=== PATIENT | female | born 1960 | race African-American/Black ===

== ENCOUNTER 2018-08-12 05:37 | Inpatient (IN) | payer MEDICARE, MEDICAID ==
[2018-08-12] VITALS (50 sets, daily range): BP systolic 80–249; BP diastolic 30–164
[~2018-08-12] VITALS: Ht 165.1 cm; Wt 67.1 kg
[2018-08-12] MEDS ORDERED: LACTATED RINGERS 1,000 ML IV SCH (06:00)
[2018-08-12] MEDS ORDERED: LIDOCAINE HCL/EPINEPHRINE 1%-EPI 1:100,000 20 ML VIAL ONE (06:16)
[2018-08-12] MEDS ORDERED: BACITRACIN 50,000 UNITS/VIAL ONE (06:16)
[2018-08-12] MEDS ORDERED: THROMBIN (BOVINE) 5000 UNITS/VIAL TOP ONE (06:17)
[2018-08-12] MEDS ORDERED: MIDAZOLAM HCL 2 MG/2 ML VIAL ONE (06:34)
[2018-08-12] MEDS ORDERED: ROCURONIUM BROMIDE 10MG/ML VIAL 5ML IV ONE ×2 (06:34→08:20)
[2018-08-12] MEDS ORDERED: PROPOFOL 200MG/20ML VIAL IV ONE ×3 (06:34→08:59)
[2018-08-12] MEDS ORDERED: HYDROMORPHONE HCL/PF 2MG/ML (OR) ONE (06:34)
[2018-08-12] MEDS ORDERED: FENTANYL CITRATE/PF 50MCG/ML 5ML VIAL ONE (06:34)
[2018-08-12] MEDS ORDERED: SODIUM CHLORIDE 0.9% 10ML VIAL ONE (06:38)
[2018-08-12] MEDS ORDERED: CEFAZOLIN SODIUM 1000MG/VIAL ONE (06:38)
[2018-08-12] MEDS ORDERED: PHENYLEPHRINE HCL 10 MG/ML 1ML (IV VIAL) IV ONE (06:40)
[2018-08-12 06:54] LABS: BASOPHILS % 0.9 % (0.0-2.0); EOSINOPHILS % 3.2 % (0.0-5.0); HEMATOCRIT. 35.3 % (36.0-48.0); HEMOGLOBIN. 11.4 g/dL (12.0-16.0); LYMPHOCYTES % 24.3 % (20.0-50.0); MEAN CORPUSCULAR VOLUME 92.7 fL (81.0-99.0); MONOCYTES % 10.5 % (2.0-8.0); NEUTROPHILS % 61.1 % (40.0-76.0); PLATELET 116 x1000/uL (130-400); RED BLOOD CELL COUNT 3.81 mill/uL (4.2-5.4); RED CELL DISTRIBUTION WIDTH 12.8 % (11.6-14.6)
[2018-08-12 07:01] LABS: CHLORIDE 106 mEq/L (98-107)
[2018-08-12 07:07] LABS: INR 1.1; PARTIAL THROMBOPLASTIN TIME 25.6 sec (23.4-31.0)
[2018-08-12] MEDS ORDERED: ESMOLOL HCL 10MG/ML 10ML VIAL IV ONE ×2 (08:04→09:00)
[2018-08-12] MEDS ORDERED: GABA-531 PO (09:12)
[2018-08-12] MEDS ORDERED: FLUT15.88 BOTHNSTRLS (09:12)
[2018-08-12] MEDS ORDERED: ACET-2178 PO (09:12)
[2018-08-12] MEDS ORDERED: HYDR25TA PO (09:12)
[2018-08-12] MEDS ORDERED: BENAZEPRIL PO (09:12)
[2018-08-12] MEDS ORDERED: HYDR-3280 PO (09:12)
[2018-08-12] MEDS ORDERED: AMLODIPINE PO (09:12)
[2018-08-12] MEDS ORDERED: FERR325T6 PO (09:12)
[2018-08-12] MEDS ORDERED: GINK120C PO (09:12)
[2018-08-12] MEDS ORDERED: NAPR220T66 PO (09:12)
[2018-08-12] MEDS ORDERED: GLYCOPYRROLATE 0.2 MG/ML 2ML VIAL ONE (09:45)
[2018-08-12] MEDS ORDERED: LABETALOL HCL 5MG/ML VIAL 20ML IV ONE (10:09)
[2018-08-12] MEDS ORDERED: ONDANSETRON HCL 4MG/2ML INJ IV PRN (10:15)
[2018-08-12] MEDS: MORPHINE SULFATE 4 MG/ML CPJ (NOT FOR IM USE) IV PRN (10:58)
[2018-08-12] MEDS: NICARDIPINE 100 MG in SODIUM CHLORIDE 0.9% 60 ML IV PRN ×2 (11:09→19:42)
[2018-08-12] MEDS ORDERED: NALOXONE INJ IV PRN (11:30)
[2018-08-12] MEDS ORDERED: HYDROMORPHONE PCA 10MG/50ML IV PRN (11:30)
[2018-08-12] MEDS ORDERED: ONDANSETRON INJ IV PRN (11:30)
[2018-08-12] MEDS ORDERED: BISACODYL 5MG TABLET PO PRN (12:45)
[2018-08-12] MEDS: DEXT 5%/LACTATED RINGERS 1,000 ML IV SCH ×3 (13:00→20:38)
[2018-08-12] MEDS ORDERED: CEFAZOLIN 1000MG PREMIX 50 ML IV SCH (14:00)
[2018-08-12] MEDS ORDERED: CEFAZOLIN SODIUM 1000MG/VIAL IV SCH (14:00)
[2018-08-12] MEDS: CEFAZOLIN 1000MG PREMIX 50 ML IV SCH ×2 (14:06→22:33)
[2018-08-12] MEDS ORDERED: DEXTROSE 50% WATER 50ML SYRINGE IV PRN (15:30)
[2018-08-12] MEDS: DOCUSATE SODIUM 100MG CAPSULE PO SCH (17:00)
[2018-08-12] MEDS: BLOOD SUGAR DIAGNOSTIC STRIP TEST SCH ×2 (17:13→21:00)
[2018-08-12] MEDS: INSULIN LISPRO 100 UNITS/ML SUBCUT SCH ×2 (17:43→21:00)
[2018-08-12] MEDS: GABAPENTIN 100MG CAPSULE PO SCH (22:33)
[2018-08-13] VITALS (89 sets, daily range): BP systolic 79–209; BP diastolic 28–131
[2018-08-13] MEDS: DEXT 5%/LACTATED RINGERS 1,000 ML IV SCH ×3 (04:26→21:30)
[2018-08-13 05:22] LABS: BASOPHILS % 0.2 % (0.0-2.0); EOSINOPHILS % 0.2 % (0.0-5.0); HEMATOCRIT. 26.3 % (36.0-48.0); HEMOGLOBIN. 8.6 g/dL (12.0-16.0); LYMPHOCYTES % 7.6 % (20.0-50.0); MEAN CORPUSCULAR HEMOGLOBIN 30.4 pg (28.0-32.0); MEAN CORPUSCULAR VOLUME 93.2 fL (81.0-99.0); MEAN PLATELET VOLUME 11.5 fl (7.4-10.4); MONOCYTES % 9.1 % (2.0-8.0); NEUTROPHILS % 82.9 % (40.0-76.0); PLATELET 88 x1000/uL (130-400); RED BLOOD CELL COUNT 2.82 mill/uL (4.2-5.4); RED CELL DISTRIBUTION WIDTH 12.6 % (11.6-14.6)
[2018-08-13] MEDS: MORPHINE SULFATE 4 MG/ML CPJ (NOT FOR IM USE) IV PRN (06:00)
[2018-08-13] MEDS: BLOOD SUGAR DIAGNOSTIC STRIP TEST SCH ×4 (06:30→21:39)
[2018-08-13] MEDS: INSULIN LISPRO 100 UNITS/ML SUBCUT SCH ×4 (07:00→21:00)
[2018-08-13] MEDS: GABAPENTIN 100MG CAPSULE PO SCH ×3 (07:03→21:46)
[2018-08-13] MEDS: CEFAZOLIN 1000MG PREMIX 50 ML IV SCH ×3 (07:04→21:46)
[2018-08-13] MEDS: DOCUSATE SODIUM 100MG CAPSULE PO SCH ×2 (08:47→17:00)
[2018-08-13] MEDS ORDERED: MAGNESIUM 2 G PREMIX 50 ML IV SCH (09:00)
[2018-08-13 20:43] LABS: HEMATOCRIT 24.9 % (36.0-48.0); HEMOGLOBIN 8.1 g/dL (12.0-16.0)
[2018-08-14] VITALS (49 sets, daily range): BP systolic 85–162; BP diastolic 26–110
[2018-08-14] MEDS: DIPHENHYDRAMINE INJ IV PRN ×2 (04:37→17:05)
[2018-08-14] MEDS: DEXT 5%/LACTATED RINGERS 1,000 ML IV SCH ×2 (04:40→22:59)
[2018-08-14 05:46] LABS: BASOPHILS % 0.1 % (0.0-2.0); EOSINOPHILS % 0.5 % (0.0-5.0); HEMATOCRIT. 22.8 % (36.0-48.0); HEMOGLOBIN. 7.6 g/dL (12.0-16.0); LYMPHOCYTES % 7.9 % (20.0-50.0); MEAN CORPUSCULAR HEMOGLOBIN 30.9 pg (28.0-32.0); MEAN CORPUSCULAR VOLUME 93.1 fL (81.0-99.0); MEAN PLATELET VOLUME 11.6 fl (7.4-10.4); MONOCYTES % 10.4 % (2.0-8.0); NEUTROPHILS % 81.1 % (40.0-76.0); PLATELET 75 x1000/uL (130-400); RED BLOOD CELL COUNT 2.45 mill/uL (4.2-5.4); RED CELL DISTRIBUTION WIDTH 12.7 % (11.6-14.6)
[2018-08-14 05:52] LABS: CHLORIDE 103 mEq/L (98-107)
[2018-08-14] MEDS: BLOOD SUGAR DIAGNOSTIC STRIP TEST SCH ×4 (05:54→20:40)
[2018-08-14] MEDS: INSULIN LISPRO 100 UNITS/ML SUBCUT SCH ×4 (06:03→20:59)
[2018-08-14 06:08] LABS: PHOSPHORUS 1.7 mg/dL (2.5-4.9)
[2018-08-14] MEDS: GABAPENTIN 100MG CAPSULE PO SCH ×3 (06:14→21:32)
[2018-08-14] MEDS: CEFAZOLIN 1000MG PREMIX 50 ML IV SCH (06:14)
[2018-08-14] MEDS ORDERED: MORPHINE SULFATE 4 MG/ML CPJ (NOT FOR IM USE) IV PRN (07:45)
[2018-08-14] MEDS: DOCUSATE SODIUM 100MG CAPSULE PO SCH ×2 (09:01→16:59)
[2018-08-14] MEDS ORDERED: SODIUM PHOS,M-BASIC-D-BASIC 20 MM in DEXT 5% WATER 250 ML IV SCH (09:30)
[2018-08-14] MEDS ORDERED: MAGNESIUM 2 G PREMIX 50 ML IV SCH (09:30)
[2018-08-14] MEDS: ACETAMINOPHEN 325MG TABLET PO PRN (09:33)
[2018-08-14] MEDS: MORPHINE SULFATE 4 MG/ML CPJ (NOT FOR IM USE) IV PRN ×2 (19:31→23:32)
[2018-08-14] MEDS: HYDROCODONE/APAP 7.5/325MG 1 TAB TABLET PO PRN (21:38)
[2018-08-15] VITALS: BP 131/67
[2018-08-15 04:00] VITALS: BP 160/50
[2018-08-15] MEDS: HYDROCODONE/APAP 7.5/325MG 1 TAB TABLET PO PRN (05:25)
[2018-08-15 06:31] LABS: HEMOGLOBIN. 8.9 g/dL (12.0-16.0); MEAN CORPUSCULAR HEMOGLOBIN 30.3 pg (28.0-32.0); MEAN CORPUSCULAR VOLUME 91.7 fL (81.0-99.0); MEAN PLATELET VOLUME 10.3 fl (7.4-10.4); PLATELET 84 x1000/uL (130-400); RED BLOOD CELL COUNT 2.95 mill/uL (4.2-5.4); RED CELL DISTRIBUTION WIDTH 12.7 % (11.6-14.6)
[2018-08-15] MEDS: BLOOD SUGAR DIAGNOSTIC STRIP TEST SCH ×4 (06:31→21:43)
[2018-08-15] MEDS: INSULIN LISPRO 100 UNITS/ML SUBCUT SCH ×4 (06:32→21:00)
[2018-08-15] MEDS: GABAPENTIN 100MG CAPSULE PO SCH ×3 (06:32→21:44)
[2018-08-15 07:39] LABS: CHLORIDE 100 mEq/L (98-107)
[2018-08-15 07:44] LABS: PHOSPHORUS 2.4 mg/dL (2.5-4.9)
[2018-08-15 08:00] VITALS: BP 140/63
[2018-08-15] MEDS: DOCUSATE SODIUM 100MG CAPSULE PO SCH ×2 (08:01→17:20)
[2018-08-15] MEDS: MORPHINE SULFATE 4 MG/ML CPJ (NOT FOR IM USE) IV PRN (08:01)
[2018-08-15 09:30] LABS: PLATELET ESTIMATE DECREASED
[2018-08-15] MEDS ORDERED: CYCLOBENZAPRINE 10MG TABLET PO PRN (09:45)
[2018-08-15] MEDS ORDERED: MORPHINE SULFATE 4 MG/ML CPJ (NOT FOR IM USE) IV PRN (09:45)
[2018-08-15] MEDS: HYDROCODONE/ACETAMINOPHEN 10/325MG TABLET PO PRN ×2 (10:26→17:24)
[2018-08-15 11:30] VITALS: BP 115/52
[2018-08-15 15:31] VITALS: BP 140/59
[2018-08-15] MEDS: DIPHENHYDRAMINE INJ IV PRN (17:56)
[2018-08-15 20:00] VITALS: BP 121/61
[2018-08-15] MEDS: POTASSIUM-SODIUM PHOSPHATE POWDER PACKET PO SCH (21:46)
[2018-08-16] VITALS: BP 131/56
[2018-08-16] MEDS: HYDROCODONE/ACETAMINOPHEN 10/325MG TABLET PO PRN ×2 (01:52→10:29)
[2018-08-16 04:00] VITALS: BP 122/62
[2018-08-16] MEDS: BLOOD SUGAR DIAGNOSTIC STRIP TEST SCH ×2 (06:24→12:15)
[2018-08-16] MEDS: GABAPENTIN 100MG CAPSULE PO SCH ×2 (06:24→13:41)
[2018-08-16] MEDS: ACETAMINOPHEN 325MG TABLET PO PRN (06:50)
[2018-08-16 06:52] LABS: BASOPHILS % 0.3 % (0.0-2.0); EOSINOPHILS % 1.5 % (0.0-5.0); HEMATOCRIT. 27.7 % (36.0-48.0); MEAN CORPUSCULAR HEMOGLOBIN 30.1 pg (28.0-32.0); MEAN CORPUSCULAR VOLUME 92.7 fL (81.0-99.0); MEAN PLATELET VOLUME 10.6 fl (7.4-10.4); NEUTROPHILS % 76.2 % (40.0-76.0); PLATELET 102 x1000/uL (130-400); RED BLOOD CELL COUNT 2.99 mill/uL (4.2-5.4); RED CELL DISTRIBUTION WIDTH 12.7 % (11.6-14.6)
[2018-08-16 07:31] LABS: CHLORIDE 98 mEq/L (98-107)
[2018-08-16] MEDS: INSULIN LISPRO 100 UNITS/ML SUBCUT SCH ×2 (07:50→12:15)
[2018-08-16 08:00] VITALS: BP 129/50
[2018-08-16] MEDS: DOCUSATE SODIUM 100MG CAPSULE PO SCH (08:31)
[2018-08-16] MEDS: POTASSIUM-SODIUM PHOSPHATE POWDER PACKET PO SCH (08:31)
[2018-08-16 11:55] VITALS: BP 101/52
[2018-08-16] MEDS ORDERED: LACTULOSE 20G/30ML UDC PO SCH (13:00)
[2018-08-16 13:21] VITALS: BP 120/62
== END 2018-08-16 15:25 | DRG 453 ==
LOC: OR 05:37 → MICUSO 05:38 → 6EST 08-14 17:58
PROVIDERS: ADMIT Neurological Surgery; ATTEND Neurological Surgery
PROC: 0ST20ZZ Resection of Lumbar Vertebral Disc, Open Approach (ICD-10-PCS; principal; 2018-08-12)
PROC: 0SG30A0 Fusion of Lumbosacral Joint with Interbody Fusion Device, Anterior Approach, Anterior Column, Open Approach (ICD-10-PCS; 2018-08-12)
PROC: 0SG3071 Fusion of Lumbosacral Joint with Autologous Tissue Substitute, Posterior Approach, Posterior Column, Open Approach (ICD-10-PCS; 2018-08-12)
PROC: 0SG10A0 Fusion of 2 or more Lumbar Vertebral Joints with Interbody Fusion Device, Anterior Approach, Anterior Column, Open Approach (ICD-10-PCS; 2018-08-12)
PROC: 0SG10K1 Fusion of 2 or more Lumbar Vertebral Joints with Nonautologous Tissue Substitute, Posterior Approach, Posterior Column, Open Approach (ICD-10-PCS; 2018-08-12)
PROC: 00NY0ZZ Release Lumbar Spinal Cord, Open Approach (ICD-10-PCS; 2018-08-12)
PROC: 4A11X4G Monitoring of Peripheral Nervous Electrical Activity, Intraoperative, External Approach (ICD-10-PCS; 2018-08-12)
PROC: BR191ZZ Fluoroscopy of Lumbar Spine using Low Osmolar Contrast (ICD-10-PCS; 2018-08-12)
PROC: BR1B1ZZ Fluoroscopy of Lumbosacral Joint using Low Osmolar Contrast (ICD-10-PCS; 2018-08-12)
PROC: 30233N1 Transfusion of Nonautologous Red Blood Cells into Peripheral Vein, Percutaneous Approach (ICD-10-PCS; 2018-08-14)
DX: M47.16 Other spondylosis with myelopathy, lumbar region (principal); G82.50 Quadriplegia, unspecified; N17.9 Acute kidney failure, unspecified; M43.16 Spondylolisthesis, lumbar region; D64.9 Anemia, unspecified; E83.42 Hypomagnesemia; M48.061 Spinal stenosis, lumbar region without neurogenic claudication; M48.02 Spinal stenosis, cervical region; D69.6 Thrombocytopenia, unspecified; G89.4 Chronic pain syndrome; M51.26 Other intervertebral disc displacement, lumbar region; Z82.49 Family history of ischemic heart disease and other diseases of the circulatory system
CPT/HCPCS: 36415; 71045; 72100; 76000; 76770; 80048; 82962; 83735; 84100; 85014; 85018; 86850; 86900; 86920; 88304; 88311; 93005; 93970; 95863; 95925; 95926; 95928; 95929; 97162; 97166; 97530; 97760; C1713; J0690; J1170; J1200; J1815; J2250; J2270; J2370; J2405; J2704; J3010; J3475; J3490; J7050; J7060; J7121; P9016

== ENCOUNTER 2018-08-16 15:25 | Inpatient (IN) | payer MEDICARE, MEDICAID ==
[~2018-08-16] VITALS: Ht 165.1 cm; Wt 64.4 kg
[~2018-08-16 15:25] MED LIST: ACET-2178 PO; AMLODIPINE PO; BENAZEPRIL PO; FERR325T6 PO; FLUT15.88 BOTHNSTRLS; GABA-531 PO; GINK120C PO; HYDR-3280 PO; HYDR25TA PO; NAPR220T66 PO
[2018-08-16 15:45] VITALS: BP 145/46
[2018-08-16 16:37] VITALS: BP 145/46
[2018-08-16] MEDS ORDERED: ONDANSETRON 4MG ODT PO PRN (16:45)
[2018-08-16] MEDS ORDERED: DIPHENHYDRAMINE 25MG CAPSULE PO PRN (16:45)
[2018-08-16] MEDS ORDERED: NALOXONE HCL 0.4 MG/ML 1ML VIAL IV PRN (16:45)
[2018-08-16] MEDS ORDERED: BISACODYL 5MG TABLET PO PRN (16:45)
[2018-08-16] MEDS: INSULIN LISPRO 100 UNITS/ML SUBCUT SCH ×2 (17:00→21:00)
[2018-08-16] MEDS ORDERED: DEXTROSE 50% WATER 50ML SYRINGE IV PRN (17:00)
[2018-08-16] MEDS: DOCUSATE SODIUM 100MG CAPSULE PO SCH (17:25)
[2018-08-16] MEDS: HYDROCODONE/ACETAMINOPHEN 10/325MG TABLET PO PRN ×2 (17:25→21:08)
[2018-08-16] MEDS: LACTULOSE 20G/30ML UDC PO SCH ×2 (17:25→21:00)
[2018-08-16] MEDS: BLOOD SUGAR DIAGNOSTIC STRIP TEST SCH ×2 (17:31→21:00)
[2018-08-16 20:00] VITALS: BP 122/54
[2018-08-16] MEDS: GABAPENTIN 100MG CAPSULE PO SCH (21:08)
[2018-08-17] VITALS: BP 158/69
[2018-08-17 04:00] VITALS: BP 148/56
[2018-08-17] MEDS: MORPHINE SULFATE 4 MG/ML CPJ (NOT FOR IM USE) IV PRN ×3 (05:51→21:03)
[2018-08-17] MEDS: BLOOD SUGAR DIAGNOSTIC STRIP TEST SCH ×4 (06:30→20:53)
[2018-08-17] MEDS: GABAPENTIN 100MG CAPSULE PO SCH ×3 (06:36→21:01)
[2018-08-17 06:49] LABS: BASOPHILS % 0.3 % (0.0-2.0); HEMATOCRIT. 25.6 % (36.0-48.0); HEMOGLOBIN. 8.4 g/dL (12.0-16.0); LYMPHOCYTES % 9.3 % (20.0-50.0); MEAN CORPUSCULAR HEMOGLOBIN 30.2 pg (28.0-32.0); MEAN PLATELET VOLUME 10.1 fl (7.4-10.4); NEUTROPHILS % 75.4 % (40.0-76.0); PLATELET 121 x1000/uL (130-400); RED BLOOD CELL COUNT 2.78 mill/uL (4.2-5.4); RED CELL DISTRIBUTION WIDTH 12.8 % (11.6-14.6)
[2018-08-17 07:23] LABS: CHLORIDE 95 mEq/L (98-107)
[2018-08-17 08:00] VITALS: BP 151/68
[2018-08-17] MEDS: DOCUSATE SODIUM 100MG CAPSULE PO SCH ×3 (08:06→17:04)
[2018-08-17] MEDS: POTASSIUM-SODIUM PHOSPHATE POWDER PACKET PO SCH (08:06)
[2018-08-17] MEDS: CYCLOBENZAPRINE 10MG TABLET PO PRN ×2 (08:06→17:07)
[2018-08-17] MEDS: HYDROCODONE/ACETAMINOPHEN 10/325MG TABLET PO PRN ×2 (08:06→19:17)
[2018-08-17] MEDS: INSULIN LISPRO 100 UNITS/ML SUBCUT SCH ×4 (08:11→20:53)
[2018-08-17] MEDS ORDERED: BISACODYL 10MG SUPP PR NR (12:17)
[2018-08-17] MEDS: LACTULOSE 20G/30ML UDC PO SCH ×3 (13:01→21:00)
[2018-08-17] MEDS: PANTOPRAZOLE 40MG DR TABLET PO SCH (13:02)
[2018-08-17 16:15] LABS: CLARITY URINE CLOUDY (CLEAR); COLOR URINE YELLOW (YELLOW); KETONES URINE NEGATIVE (NEGATIVE); LEUKOCYTE ESTERASE URINE 3+ (NEGATIVE); NITRITE URINE NEGATIVE (NEGATIVE); OCCULT BLOOD URINE NEGATIVE (NEGATIVE); PROTEIN URINE 1+ (NEGATIVE); SPECIFIC GRAVITY URINE 1.014 (1.005-1.030)
[2018-08-17 20:00] VITALS: BP 150/80
[2018-08-17] MEDS: POLYETHYLENE GLYCOL 3350 (17GM) 1 DOSE PACK PO SCH (21:00)
[2018-08-18] MEDS: ACETAMINOPHEN 325MG TABLET PO PRN ×2 (01:25→16:39)
[2018-08-18] MEDS: GABAPENTIN 100MG CAPSULE PO SCH ×3 (05:48→21:03)
[2018-08-18] MEDS: BLOOD SUGAR DIAGNOSTIC STRIP TEST SCH ×4 (05:48→20:56)
[2018-08-18] MEDS: PANTOPRAZOLE 40MG DR TABLET PO SCH (06:40)
[2018-08-18] MEDS: HYDROCODONE/ACETAMINOPHEN 10/325MG TABLET PO PRN ×2 (07:55→20:18)
[2018-08-18 08:00] VITALS: BP 167/72
[2018-08-18] MEDS: POTASSIUM-SODIUM PHOSPHATE POWDER PACKET PO SCH (08:30)
[2018-08-18] MEDS: DOCUSATE SODIUM 100MG CAPSULE PO SCH ×3 (08:30→16:39)
[2018-08-18] MEDS: INSULIN LISPRO 100 UNITS/ML SUBCUT SCH ×4 (09:00→20:56)
[2018-08-18] MEDS: DIAZEPAM 5 MG TABLET PO PRN (11:09)
[2018-08-18] MEDS: LEVOFLOXACIN 500MG TABLET PO SCH (11:09)
[2018-08-18] MEDS ORDERED: LACTULOSE 20G/30ML UDC PO PRN (11:15)
[2018-08-18] MEDS ORDERED: NA PHOS,M-B/NA PHOS,DI-BA ENEMA 118ML PR NR (11:15)
[2018-08-18] MEDS ORDERED: BISACODYL 10MG SUPP PR PRN (11:15)
[2018-08-18 20:00] VITALS: BP 127/61
[2018-08-18] MEDS: POLYETHYLENE GLYCOL 3350 (17GM) 1 DOSE PACK PO SCH (20:17)
[2018-08-19] MEDS: BLOOD SUGAR DIAGNOSTIC STRIP TEST SCH ×4 (05:57→20:52)
[2018-08-19] MEDS: GABAPENTIN 100MG CAPSULE PO SCH ×2 (05:58→13:01)
[2018-08-19] MEDS: PANTOPRAZOLE 40MG DR TABLET PO SCH (06:00)
[2018-08-19 06:09] LABS: HEMATOCRIT. 25.5 % (36.0-48.0); HEMOGLOBIN. 8.3 g/dL (12.0-16.0); MEAN CORPUSCULAR HEMOGLOBIN 29.6 pg (28.0-32.0); MEAN CORPUSCULAR VOLUME 90.4 fL (81.0-99.0); MEAN PLATELET VOLUME 9.9 fl (7.4-10.4); PLATELET 187 x1000/uL (130-400); RED BLOOD CELL COUNT 2.82 mill/uL (4.2-5.4); RED CELL DISTRIBUTION WIDTH 12.7 % (11.6-14.6)
[2018-08-19] MEDS: INSULIN LISPRO 100 UNITS/ML SUBCUT SCH ×4 (06:21→20:52)
[2018-08-19 06:34] LABS: CHLORIDE 94 mEq/L (98-107)
[2018-08-19] MEDS: HYDROCODONE/ACETAMINOPHEN 10/325MG TABLET PO PRN (06:47)
[2018-08-19 06:51] LABS: FERRITIN 272 ng/mL (10-291)
[2018-08-19 06:55] LABS: TOTAL IRON BINDING CAPACITY 178 ug/dL (250-450)
[2018-08-19 06:58] LABS: PHOSPHORUS 4.2 mg/dL (2.5-4.9)
[2018-08-19 07:07] LABS: FOLIC ACID (FOLATE) SERUM > 20.00 ng/mL (>5.38); VITAMIN B12 SERUM > 2000.0 pg/mL (211-911)
[2018-08-19] MEDS: POTASSIUM-SODIUM PHOSPHATE POWDER PACKET PO SCH (08:40)
[2018-08-19] MEDS: DOCUSATE SODIUM 100MG CAPSULE PO SCH ×2 (08:40→17:15)
[2018-08-19 08:51] VITALS: BP 139/73
[2018-08-19] MEDS: LEVOFLOXACIN 500MG TABLET PO SCH (10:14)
[2018-08-19 10:34] LABS: PLATELET ESTIMATE NORMAL
[2018-08-19] MEDS ORDERED: FERROUS SULFATE 325MG TABLET PO SCH (13:00)
[2018-08-19] MEDS: ACETAMINOPHEN 325MG TABLET PO PRN (13:53)
[2018-08-19] MEDS: IRON SUCROSE COMPLEX 100 MG in SODIUM CHLORIDE 0.9% 100 ML IV SCH (17:38)
[2018-08-19 20:00] VITALS: BP 143/66
[2018-08-19] MEDS: POLYETHYLENE GLYCOL 3350 (17GM) 1 DOSE PACK PO SCH (20:52)
[2018-08-19] MEDS: GABAPENTIN 300MG CAPSULE PO SCH (21:01)
[2018-08-19] MEDS: DIAZEPAM 5 MG TABLET PO PRN (22:10)
[2018-08-20] MEDS: PANTOPRAZOLE 40MG DR TABLET PO SCH (06:09)
[2018-08-20] MEDS: BLOOD SUGAR DIAGNOSTIC STRIP TEST SCH ×4 (06:09→21:12)
[2018-08-20] MEDS: GABAPENTIN 300MG CAPSULE PO SCH ×3 (06:09→21:12)
[2018-08-20] MEDS: INSULIN LISPRO 100 UNITS/ML SUBCUT SCH ×4 (06:10→21:00)
[2018-08-20] MEDS: HYDROCODONE/ACETAMINOPHEN 10/325MG TABLET PO PRN ×2 (06:48→17:57)
[2018-08-20] MEDS: DOCUSATE SODIUM 100MG CAPSULE PO SCH ×2 (08:32→17:02)
[2018-08-20] MEDS: POTASSIUM-SODIUM PHOSPHATE POWDER PACKET PO SCH (08:33)
[2018-08-20] MEDS: LACTULOSE 20G/30ML UDC PO SCH (08:33)
[2018-08-20 08:36] VITALS: BP 159/73
[2018-08-20] MEDS: NITROFURANTOIN 100MG M/M CAPSULE PO SCH ×2 (13:51→21:12)
[2018-08-20] MEDS: IRON SUCROSE COMPLEX 100 MG in SODIUM CHLORIDE 0.9% 100 ML IV SCH (17:02)
[2018-08-20 17:50] VITALS: BP 141/75
[2018-08-20 20:00] VITALS: BP 129/71
[2018-08-20] MEDS: POLYETHYLENE GLYCOL 3350 (17GM) 1 DOSE PACK PO SCH (21:12)
[2018-08-21] MEDS: GABAPENTIN 300MG CAPSULE PO SCH ×3 (05:56→21:10)
[2018-08-21] MEDS: BLOOD SUGAR DIAGNOSTIC STRIP TEST SCH ×4 (05:58→21:08)
[2018-08-21] MEDS: INSULIN LISPRO 100 UNITS/ML SUBCUT SCH ×4 (05:59→21:00)
[2018-08-21 08:00] VITALS: BP 135/66
[2018-08-21] MEDS: FAMOTIDINE 20MG TABLET PO SCH ×2 (08:10→20:40)
[2018-08-21] MEDS: ACETAMINOPHEN 325MG TABLET PO PRN (08:10)
[2018-08-21] MEDS: DOCUSATE SODIUM 100MG CAPSULE PO SCH ×2 (08:10→16:45)
[2018-08-21] MEDS: NITROFURANTOIN 100MG M/M CAPSULE PO SCH ×2 (08:10→20:40)
[2018-08-21] MEDS: LACTULOSE 20G/30ML UDC PO SCH (08:11)
[2018-08-21] MEDS: POTASSIUM-SODIUM PHOSPHATE POWDER PACKET PO SCH (08:11)
[2018-08-21] MEDS: HYDROCODONE/ACETAMINOPHEN 10/325MG TABLET PO PRN (12:41)
[2018-08-21] MEDS: POLYETHYLENE GLYCOL 3350 (17GM) 1 DOSE PACK PO SCH ×2 (20:41→20:49)
[2018-08-21] MEDS: IRON SUCROSE COMPLEX 100 MG in SODIUM CHLORIDE 0.9% 100 ML IV SCH (21:07)
[2018-08-21 21:33] VITALS: BP 143/71
[2018-08-22] MEDS: ACETAMINOPHEN 325MG TABLET PO PRN ×3 (00:33→22:15)
[2018-08-22] MEDS: INSULIN LISPRO 100 UNITS/ML SUBCUT SCH ×4 (06:01→21:00)
[2018-08-22] MEDS: BLOOD SUGAR DIAGNOSTIC STRIP TEST SCH ×4 (06:01→21:00)
[2018-08-22] MEDS: GABAPENTIN 300MG CAPSULE PO SCH ×3 (06:01→22:06)
[2018-08-22] MEDS ORDERED: POLYETHYLENE GLYCOL 3350 (17GM) 1 DOSE PACK PO PRN (07:00)
[2018-08-22 07:44] LABS: BASOPHILS % 0.7 % (0.0-2.0); EOSINOPHILS % 1.3 % (0.0-5.0); HEMOGLOBIN. 8.3 g/dL (12.0-16.0); LYMPHOCYTES % 14.1 % (20.0-50.0); MEAN CORPUSCULAR HEMOGLOBIN 29.3 pg (28.0-32.0); MEAN CORPUSCULAR VOLUME 91.8 fL (81.0-99.0); MONOCYTES % 13.4 % (2.0-8.0); NEUTROPHILS % 70.5 % (40.0-76.0); PLATELET 282 x1000/uL (130-400); RED BLOOD CELL COUNT 2.84 mill/uL (4.2-5.4); RED CELL DISTRIBUTION WIDTH 13.3 % (11.6-14.6)
[2018-08-22 07:50] VITALS: BP 149/75
[2018-08-22 08:18] LABS: CHLORIDE 98 mEq/L (98-107)
[2018-08-22] MEDS ORDERED: DIAZEPAM 5 MG TABLET PO PRN (08:30)
[2018-08-22] MEDS: LACTULOSE 20G/30ML UDC PO SCH ×2 (09:00→22:07)
[2018-08-22] MEDS: POTASSIUM-SODIUM PHOSPHATE POWDER PACKET PO SCH (09:40)
[2018-08-22] MEDS: NITROFURANTOIN 100MG M/M CAPSULE PO SCH ×2 (09:40→22:06)
[2018-08-22] MEDS: FAMOTIDINE 20MG TABLET PO SCH ×2 (09:40→22:06)
[2018-08-22] MEDS: DOCUSATE SODIUM 100MG CAPSULE PO SCH ×2 (09:40→16:29)
[2018-08-22 20:00] VITALS: BP 141/64
[2018-08-22] MEDS: IRON SUCROSE COMPLEX 100 MG in SODIUM CHLORIDE 0.9% 100 ML IV SCH (22:07)
[2018-08-23] MEDS: HYDROCODONE/ACETAMINOPHEN 10/325MG TABLET PO PRN ×2 (02:57→21:04)
[2018-08-23] MEDS: GABAPENTIN 300MG CAPSULE PO SCH (05:44)
[2018-08-23] MEDS: BLOOD SUGAR DIAGNOSTIC STRIP TEST SCH ×4 (06:10→20:58)
[2018-08-23] MEDS: INSULIN LISPRO 100 UNITS/ML SUBCUT SCH ×4 (06:10→21:00)
[2018-08-23 08:00] VITALS: BP 119/51
[2018-08-23] MEDS: DOCUSATE SODIUM 100MG CAPSULE PO SCH ×2 (09:22→17:13)
[2018-08-23] MEDS: FAMOTIDINE 20MG TABLET PO SCH ×2 (09:22→20:37)
[2018-08-23] MEDS: POTASSIUM-SODIUM PHOSPHATE POWDER PACKET PO SCH (09:22)
[2018-08-23] MEDS: NITROFURANTOIN 100MG M/M CAPSULE PO SCH ×2 (09:22→20:37)
[2018-08-23] MEDS: ACETAMINOPHEN 325MG TABLET PO PRN ×2 (09:23→15:20)
[2018-08-23 13:16] LABS: 25-HYDROXY VITAMIN D3 41 ng/mL (.)
[2018-08-23] MEDS: GABAPENTIN 400MG CAPSULE PO SCH ×2 (15:20→22:51)
[2018-08-23] MEDS ORDERED: DIAZEPAM 5 MG TABLET PO PRN (16:30)
[2018-08-23 20:00] VITALS: BP 130/64
[2018-08-23] MEDS: IRON SUCROSE COMPLEX 100 MG in SODIUM CHLORIDE 0.9% 100 ML IV SCH (20:54)
[2018-08-24] MEDS: ACETAMINOPHEN 325MG TABLET PO PRN ×2 (02:32→16:31)
[2018-08-24] MEDS: GABAPENTIN 400MG CAPSULE PO SCH ×3 (05:32→21:08)
[2018-08-24] MEDS: BLOOD SUGAR DIAGNOSTIC STRIP TEST SCH ×4 (05:41→21:00)
[2018-08-24 07:51] VITALS: BP 137/68
[2018-08-24] MEDS: NITROFURANTOIN 100MG M/M CAPSULE PO SCH ×2 (08:52→21:08)
[2018-08-24] MEDS: LACTULOSE 20G/30ML UDC PO SCH (08:52)
[2018-08-24] MEDS: FAMOTIDINE 20MG TABLET PO SCH ×2 (08:52→21:07)
[2018-08-24] MEDS: INSULIN LISPRO 100 UNITS/ML SUBCUT SCH ×4 (08:52→21:34)
[2018-08-24] MEDS: DOCUSATE SODIUM 100MG CAPSULE PO SCH ×2 (08:52→16:31)
[2018-08-24 20:00] VITALS: BP 130/63
[2018-08-25] MEDS: ACETAMINOPHEN 325MG TABLET PO PRN ×3 (00:40→21:10)
[2018-08-25] MEDS: INSULIN LISPRO 100 UNITS/ML SUBCUT SCH ×4 (05:54→21:00)
[2018-08-25] MEDS: BLOOD SUGAR DIAGNOSTIC STRIP TEST SCH ×4 (05:54→21:04)
[2018-08-25] MEDS: GABAPENTIN 400MG CAPSULE PO SCH ×3 (06:01→21:04)
[2018-08-25] MEDS: HYDROCODONE/ACETAMINOPHEN 10/325MG TABLET PO PRN ×3 (06:02→23:07)
[2018-08-25 06:08] LABS: BASOPHILS % 0.6 % (0.0-2.0); HEMATOCRIT. 25.2 % (36.0-48.0); HEMOGLOBIN. 8.2 g/dL (12.0-16.0); LYMPHOCYTES % 13.7 % (20.0-50.0); MEAN CORPUSCULAR VOLUME 92.7 fL (81.0-99.0); MEAN PLATELET VOLUME 9.6 fl (7.4-10.4); MONOCYTES % 9.6 % (2.0-8.0); NEUTROPHILS % 75.1 % (40.0-76.0); PLATELET 292 x1000/uL (130-400); RED BLOOD CELL COUNT 2.72 mill/uL (4.2-5.4); RED CELL DISTRIBUTION WIDTH 13.4 % (11.6-14.6)
[2018-08-25 07:36] LABS: CHLORIDE 100 mEq/L (98-107)
[2018-08-25] MEDS: FAMOTIDINE 20MG TABLET PO SCH ×2 (09:02→21:04)
[2018-08-25] MEDS: LACTULOSE 20G/30ML UDC PO SCH (09:02)
[2018-08-25] MEDS: NITROFURANTOIN 100MG M/M CAPSULE PO SCH ×2 (09:02→21:04)
[2018-08-25] MEDS: DOCUSATE SODIUM 100MG CAPSULE PO SCH ×2 (09:03→17:37)
[2018-08-25 10:14] VITALS: BP 122/64
[2018-08-25 20:00] VITALS: BP 141/64
[2018-08-25] MEDS: CYCLOBENZAPRINE 10MG TABLET PO PRN (23:17)
[2018-08-26] MEDS: GABAPENTIN 400MG CAPSULE PO SCH (05:38)
[2018-08-26] MEDS: BLOOD SUGAR DIAGNOSTIC STRIP TEST SCH (07:23)
[2018-08-26 08:10] VITALS: BP 127/69
[2018-08-26] MEDS: LACTULOSE 20G/30ML UDC PO SCH (08:10)
[2018-08-26] MEDS: DOCUSATE SODIUM 100MG CAPSULE PO SCH (08:10)
[2018-08-26] MEDS: NITROFURANTOIN 100MG M/M CAPSULE PO SCH (08:11)
[2018-08-26] MEDS: FAMOTIDINE 20MG TABLET PO SCH (08:11)
[2018-08-26] MEDS: HYDROCODONE/ACETAMINOPHEN 10/325MG TABLET PO PRN (08:11)
[2018-08-26] MEDS: INSULIN LISPRO 100 UNITS/ML SUBCUT SCH (08:11)
[2018-08-26 08:35] VITALS: BP 134/58
== END 2018-08-26 10:20 | disposition home health service (06) | DRG 551 ==
PROVIDERS: ADMIT Physical Medicine & Rehabilitation Spinal Cord Injury Medicine; ATTEND Internal Medicine Nephrology
DX: M48.061 Spinal stenosis, lumbar region without neurogenic claudication (principal); G82.50 Quadriplegia, unspecified; E43 Unspecified severe protein-calorie malnutrition; K59.2 Neurogenic bowel, not elsewhere classified; N39.0 Urinary tract infection, site not specified; F33.1 Major depressive disorder, recurrent, moderate; M43.16 Spondylolisthesis, lumbar region; M47.816 Spondylosis without myelopathy or radiculopathy, lumbar region; I10 Essential (primary) hypertension; M48.02 Spinal stenosis, cervical region; G89.4 Chronic pain syndrome; R79.89 Other specified abnormal findings of blood chemistry; D69.6 Thrombocytopenia, unspecified; R50.82 Postprocedural fever; K59.00 Constipation, unspecified; E83.42 Hypomagnesemia; N31.9 Neuromuscular dysfunction of bladder, unspecified; M51.26 Other intervertebral disc displacement, lumbar region; B95.2 Enterococcus as the cause of diseases classified elsewhere; D50.9 Iron deficiency anemia, unspecified; G62.9 Polyneuropathy, unspecified; B96.1 Klebsiella pneumoniae [K. pneumoniae] as the cause of diseases classified elsewhere; Z68.23 Body mass index [BMI] 23.0-23.9, adult; Z82.49 Family history of ischemic heart disease and other diseases of the circulatory system; Z79.899 Other long term (current) drug therapy
CPT/HCPCS: 36415; 80048; 82306; 82607; 82728; 82746; 82962; 83540; 83550; 83735; 84100; 84134; 84443; 87077; 87186; 93970; 97110; 97116; 97162; 97167; 97530; 97535; C1893; J1815; J2270; J7050

== ENCOUNTER 2019-01-20 05:20 | Inpatient (IN) | payer MEDICARE, MEDICAID ==
[~2019-01-20] VITALS: Ht 167.6 cm; Wt 70.8 kg
[2019-01-20] VITALS (49 sets, daily range): BP systolic 16–160; BP diastolic 11–158
[~2019-01-20 05:20] MED LIST changes: -ACET-2178 PO; -HYDR-3280 PO; -HYDR25TA PO; +LACTATED RINGERS 1,000 ML IV SCH; -NAPR220T66 PO; +TOPUD PO
[2019-01-20] MEDS ORDERED: THROMBIN (BOVINE) 5000 UNITS/VIAL TOP ONE (06:22)
[2019-01-20] MEDS ORDERED: NORMAL SALINE 0.9% 10 ML SYR ONE (06:22)
[2019-01-20] MEDS ORDERED: BACITRACIN 15GM TUBE TOP ONE (06:22)
[2019-01-20] MEDS ORDERED: LIDOCAINE HCL/EPINEPHRINE 1%-EPI 1:100,000 20 ML VIAL ONE (06:23)
[2019-01-20] MEDS ORDERED: BACITRACIN 50,000 UNITS/VIAL ONE (06:23)
[2019-01-20] MEDS ORDERED: FENTANYL CITRATE/PF 50MCG/ML 2ML VIAL ONE ×2 (06:34→07:38)
[2019-01-20] MEDS ORDERED: PROPOFOL 200MG/20ML VIAL IV ONE (06:35)
[2019-01-20] MEDS ORDERED: MIDAZOLAM HCL 2 MG/2 ML VIAL ONE (06:35)
[2019-01-20] MEDS ORDERED: ROCURONIUM BROMIDE 10MG/ML VIAL 5ML IV ONE (06:35)
[2019-01-20] MEDS ORDERED: GLYCOPYRROLATE 0.2 MG/ML 2ML VIAL ONE ×3 (06:35→09:22)
[2019-01-20] MEDS ORDERED: NEOSTIGMINE METHYLSULFATE 1MG/ML 10 ML VIAL ONE (06:35)
[2019-01-20] MEDS ORDERED: ONDANSETRON HCL 4MG/2ML INJ ONE (06:36)
[2019-01-20] MEDS ORDERED: DEXAMETHASONE 4MG/ML 1ML VIAL ONE (06:36)
[2019-01-20 06:38] LABS: BASOPHILS % 0.6 % (0.0-2.0); EOSINOPHILS % 2.1 % (0.0-5.0); HEMATOCRIT. 33.3 % (36.0-48.0); HEMOGLOBIN. 10.9 g/dL (12.0-16.0); LYMPHOCYTES % 20.7 % (20.0-50.0); MEAN CORPUSCULAR HEMOGLOBIN 30.3 pg (28.0-32.0); MEAN CORPUSCULAR VOLUME 92.2 fL (81.0-99.0); MEAN PLATELET VOLUME 11.7 fl (7.4-10.4); MONOCYTES % 8.4 % (2.0-8.0); NEUTROPHILS % 68.2 % (40.0-76.0); PLATELET 115 x1000/uL (130-400); RED BLOOD CELL COUNT 3.61 mill/uL (4.2-5.4); RED CELL DISTRIBUTION WIDTH 12.9 % (11.6-14.6)
[2019-01-20 06:40] LABS: CLARITY URINE CLEAR (CLEAR); COLOR URINE YELLOW (YELLOW); KETONES URINE NEGATIVE (NEGATIVE); LEUKOCYTE ESTERASE URINE 1+ (NEGATIVE); NITRITE URINE NEGATIVE (NEGATIVE); OCCULT BLOOD URINE NEGATIVE (NEGATIVE); PROTEIN URINE NEGATIVE (NEGATIVE); UROBILINOGEN URINE 0.2 E.U./dL (0.2-1.0)
[2019-01-20 06:53] LABS: INR 1.1; PARTIAL THROMBOPLASTIN TIME 25.3 sec (23.4-31.0); PROTHROMBIN TIME 11.1 sec (9.6-11.0)
[2019-01-20] MEDS ORDERED: HYDR25TA PO (06:53)
[2019-01-20] MEDS ORDERED: HYDR-4001 PO (06:53)
[2019-01-20] MEDS ORDERED: DIAZ5TAB PO (06:53)
[2019-01-20] MEDS ORDERED: PROPOFOL 10MG/ML 100ML 100 ML IV ONE (07:50)
[2019-01-20] MEDS ORDERED: ONDANSETRON HCL 4MG/2ML INJ IV PRN (08:30)
[2019-01-20] MEDS ORDERED: LABETALOL 5MG/ML SYR 20 MG/4 ML SYRINGE IV PRN (08:30)
[2019-01-20] MEDS ORDERED: HYDROMORPHONE HCL/PF 2MG/ML CPJ IV PRN (08:30)
[2019-01-20] MEDS ORDERED: MEPERIDINE HCL/PF 25MG/ML CPJ IV PRN (08:30)
[2019-01-20] MEDS: NICARDIPINE 100 MG in SODIUM CHLORIDE 0.9% 60 ML IV PRN (09:30)
[2019-01-20] MEDS: MORPHINE SULFATE 4 MG/ML CPJ (NOT FOR IM USE) IV PRN ×3 (09:58→18:30)
[2019-01-20] MEDS: DEXT 5%/LACTATED RINGERS 1,000 ML IV SCH ×3 (09:59→19:12)
[2019-01-20] MEDS ORDERED: ACETAMINOPHEN 325MG TABLET PO PRN (10:00)
[2019-01-20] MEDS ORDERED: NALOXONE INJ IV PRN (10:15)
[2019-01-20] MEDS ORDERED: HYDROMORPHONE PCA 10MG/50ML IV PRN (10:15)
[2019-01-20] MEDS ORDERED: ONDANSETRON INJ IV PRN (10:15)
[2019-01-20] MEDS ORDERED: IPRATROPIUM/ALBUTEROL 0.5-3(2.5)MG/3ML NEB HHN PRN (12:45)
[2019-01-20] MEDS ORDERED: BISACODYL 5MG TABLET PO PRN (12:45)
[2019-01-20] MEDS ORDERED: BENZONATATE 100MG CAPSULE PO PRN (12:45)
[2019-01-20] MEDS: CEFAZOLIN 1000MG PREMIX 50 ML IV SCH ×2 (13:39→21:35)
[2019-01-20] MEDS ORDERED: CEFAZOLIN SODIUM 1000MG/VIAL IV SCH (14:00)
[2019-01-20] MEDS: DOCUSATE SODIUM 100MG CAPSULE PO SCH (17:00)
[2019-01-20] MEDS: DIPHENHYDRAMINE INJ IV PRN (20:11)
[2019-01-21] VITALS (77 sets, daily range): BP systolic 14–165; BP diastolic 0–164
[2019-01-21] MEDS: NICARDIPINE 100 MG in SODIUM CHLORIDE 0.9% 60 ML IV PRN ×3 (00:56→21:19)
[2019-01-21] MEDS: DEXT 5%/LACTATED RINGERS 1,000 ML IV SCH ×2 (00:56→03:52)
[2019-01-21] MEDS: CEFAZOLIN 1000MG PREMIX 50 ML IV SCH ×3 (05:32→21:13)
[2019-01-21] MEDS: MORPHINE SULFATE 4 MG/ML CPJ (NOT FOR IM USE) IV PRN ×4 (05:44→16:50)
[2019-01-21] MEDS: DIPHENHYDRAMINE INJ IV PRN (05:44)
[2019-01-21 06:02] LABS: BASOPHILS % 0.2 % (0.0-2.0); EOSINOPHILS % 0.1 % (0.0-5.0); HEMATOCRIT. 36.2 % (36.0-48.0); HEMOGLOBIN. 11.6 g/dL (12.0-16.0); LYMPHOCYTES % 9.4 % (20.0-50.0); MEAN CORPUSCULAR VOLUME 93.8 fL (81.0-99.0); MEAN PLATELET VOLUME 11.2 fl (7.4-10.4); MONOCYTES % 7.8 % (2.0-8.0); NEUTROPHILS % 82.5 % (40.0-76.0); PLATELET 125 x1000/uL (130-400); RED BLOOD CELL COUNT 3.86 mill/uL (4.2-5.4)
[2019-01-21 06:08] LABS: CHLORIDE 101 mEq/L (98-107)
[2019-01-21 06:18] LABS: LDL CHOLESTEROL 126 mg/dL (5-100)
[2019-01-21 06:19] LABS: HDL CHOLESTEROL 60 mg/dL (40-59)
[2019-01-21] MEDS: DOCUSATE SODIUM 100MG CAPSULE PO SCH ×2 (08:34→16:50)
[2019-01-21] MEDS ORDERED: FURO20TA4 PO (13:07)
[2019-01-21] MEDS: FUROSEMIDE 20MG TABLET PO SCH (13:23)
[2019-01-21] MEDS: IPRATROPIUM/ALBUTEROL 0.5-3(2.5)MG/3ML NEB NEB SCH (20:39)
[2019-01-21] MEDS: ATORVASTATIN CALCIUM 20MG TABLET PO SCH (21:12)
[2019-01-22] VITALS (70 sets, daily range): BP systolic 72–156; BP diastolic 21–102
[2019-01-22] MEDS: MORPHINE SULFATE 4 MG/ML CPJ (NOT FOR IM USE) IV PRN ×5 (00:24→20:44)
[2019-01-22] MEDS: IPRATROPIUM/ALBUTEROL 0.5-3(2.5)MG/3ML NEB NEB SCH ×4 (02:14→21:12)
[2019-01-22] MEDS: CEFAZOLIN 1000MG PREMIX 50 ML IV SCH (05:17)
[2019-01-22] MEDS: DIPHENHYDRAMINE 50MG/ML VIAL IV PRN ×3 (06:45→20:42)
[2019-01-22] MEDS: AMLODIPINE 5MG TABLET PO SCH (08:55)
[2019-01-22] MEDS: DOCUSATE SODIUM 100MG CAPSULE PO SCH ×2 (08:55→16:47)
[2019-01-22] MEDS: FUROSEMIDE 20MG TABLET PO SCH (08:55)
[2019-01-22] MEDS: NICARDIPINE 100 MG in SODIUM CHLORIDE 0.9% 60 ML IV PRN (09:46)
[2019-01-22] MEDS: DEXAMETHASONE 4MG/ML 1ML VIAL IV SCH ×2 (11:22→18:00)
[2019-01-22] MEDS ORDERED: DEXT 5%/0.9% NACL 1,000 ML IV SCH (11:30)
[2019-01-22 13:43] LABS: HEMATOCRIT. 36.9 % (36.0-48.0); HEMOGLOBIN. 11.8 g/dL (12.0-16.0); MEAN CORPUSCULAR HEMOGLOBIN 29.8 pg (28.0-32.0); MEAN PLATELET VOLUME 11.2 fl (7.4-10.4); PLATELET 138 x1000/uL (130-400); RED BLOOD CELL COUNT 3.97 mill/uL (4.2-5.4); RED CELL DISTRIBUTION WIDTH 13.3 % (11.6-14.6)
[2019-01-22 13:50] LABS: CHLORIDE 94 mEq/L (98-107)
[2019-01-22 14:12] LABS: PLATELET ESTIMATE NORMAL
[2019-01-22] MEDS ORDERED: CLONIDINE 0.1MG TABLET PO PRN (17:30)
[2019-01-22] MEDS: ATORVASTATIN CALCIUM 20MG TABLET PO SCH (20:42)
[2019-01-22] MEDS: DEXT 5%/0.9% NACL 1,000 ML IV SCH (20:51)
[2019-01-23] VITALS: BP 117/67
[2019-01-23] MEDS: DEXAMETHASONE 4MG/ML 1ML VIAL IV SCH ×3 (00:07→12:00)
[2019-01-23] MEDS: IPRATROPIUM/ALBUTEROL 0.5-3(2.5)MG/3ML NEB NEB SCH ×4 (01:09→21:55)
[2019-01-23 04:00] VITALS: BP 131/73
[2019-01-23 08:00] VITALS: BP 138/70
[2019-01-23 08:05] LABS: HEMATOCRIT. 34.1 % (36.0-48.0); HEMOGLOBIN. 10.9 g/dL (12.0-16.0); MEAN CORPUSCULAR HEMOGLOBIN 29.6 pg (28.0-32.0); MEAN CORPUSCULAR VOLUME 92.7 fL (81.0-99.0); MEAN PLATELET VOLUME 11.3 fl (7.4-10.4); PLATELET 116 x1000/uL (130-400); RED BLOOD CELL COUNT 3.68 mill/uL (4.2-5.4); RED CELL DISTRIBUTION WIDTH 12.9 % (11.6-14.6)
[2019-01-23 08:32] LABS: CHLORIDE 101 mEq/L (98-107)
[2019-01-23 08:42] LABS: PHOSPHORUS 2.8 mg/dL (2.5-4.9)
[2019-01-23 09:25] LABS: PLATELET ESTIMATE SLIGHTLY DECREASED
[2019-01-23] MEDS: HYDROCODONE/ACETAMINOPHEN 5/325MG TABLET PO PRN ×3 (09:59→23:47)
[2019-01-23] MEDS: AMLODIPINE 5MG TABLET PO SCH (09:59)
[2019-01-23] MEDS: DOCUSATE SODIUM 100MG CAPSULE PO SCH ×2 (10:00→17:34)
[2019-01-23] MEDS: FUROSEMIDE 20MG TABLET PO SCH (10:01)
[2019-01-23] MEDS ORDERED: BISACODYL 10MG SUPP PR PRN (11:15)
[2019-01-23 12:00] VITALS: BP 140/66
[2019-01-23] MEDS: LACTULOSE 20G/30ML UDC PO SCH ×3 (12:00→21:00)
[2019-01-23] MEDS: GABAPENTIN 100MG CAPSULE PO SCH ×2 (13:01→21:14)
[2019-01-23 16:00] VITALS: BP 121/67
[2019-01-23 20:00] VITALS: BP 129/69
[2019-01-23] MEDS: DIPHENHYDRAMINE 50MG/ML VIAL IV PRN (21:14)
[2019-01-23] MEDS: ATORVASTATIN CALCIUM 20MG TABLET PO SCH (21:14)
[2019-01-24] VITALS: BP 128/60
[2019-01-24] MEDS: IPRATROPIUM/ALBUTEROL 0.5-3(2.5)MG/3ML NEB NEB SCH ×3 (03:21→13:59)
[2019-01-24 04:00] VITALS: BP 127/58
[2019-01-24] MEDS: GABAPENTIN 100MG CAPSULE PO SCH ×3 (07:02→21:09)
[2019-01-24 08:00] VITALS: BP 120/66
[2019-01-24] MEDS: DOCUSATE SODIUM 100MG CAPSULE PO SCH ×2 (09:31→17:00)
[2019-01-24] MEDS: FUROSEMIDE 20MG TABLET PO SCH (09:31)
[2019-01-24] MEDS: AMLODIPINE 5MG TABLET PO SCH (09:35)
[2019-01-24 12:00] VITALS: BP 126/76
[2019-01-24] MEDS: HYDROCODONE/ACETAMINOPHEN 5/325MG TABLET PO PRN ×2 (12:10→18:11)
[2019-01-24 16:00] VITALS: BP_SYST 112; BP_SYST 123; BP_DIAS 64; BP_DIAS 66
[2019-01-24 20:00] VITALS: BP 102/61
[2019-01-24] MEDS: ATORVASTATIN CALCIUM 20MG TABLET PO SCH (21:08)
[2019-01-24] MEDS: HYDROCODONE/ACETAMINOPHEN 10/325MG TABLET PO PRN (22:17)
[2019-01-24] MEDS: DEXT 5%/0.9% NACL 1,000 ML IV SCH (23:34)
[2019-01-24] MEDS: DIPHENHYDRAMINE 50MG/ML VIAL IV PRN (23:51)
[2019-01-25] VITALS (7 sets, daily range): BP systolic 19–169; BP diastolic 59–132
[2019-01-25] MEDS: IPRATROPIUM/ALBUTEROL 0.5-3(2.5)MG/3ML NEB NEB SCH ×4 (01:52→21:10)
[2019-01-25] MEDS: GABAPENTIN 100MG CAPSULE PO SCH ×3 (05:47→21:01)
[2019-01-25 06:06] LABS: BASOPHILS % 0.2 % (0.0-2.0); EOSINOPHILS % 1.8 % (0.0-5.0); HEMATOCRIT. 30.7 % (36.0-48.0); HEMOGLOBIN. 10.1 g/dL (12.0-16.0); LYMPHOCYTES % 20.6 % (20.0-50.0); MEAN CORPUSCULAR HEMOGLOBIN 30.7 pg (28.0-32.0); MEAN CORPUSCULAR VOLUME 93.3 fL (81.0-99.0); MEAN PLATELET VOLUME 10.9 fl (7.4-10.4); MONOCYTES % 13.6 % (2.0-8.0); NEUTROPHILS % 63.8 % (40.0-76.0); PLATELET 123 x1000/uL (130-400); RED BLOOD CELL COUNT 3.29 mill/uL (4.2-5.4); RED CELL DISTRIBUTION WIDTH 12.9 % (11.6-14.6)
[2019-01-25] MEDS: AMLODIPINE 5MG TABLET PO SCH (09:40)
[2019-01-25] MEDS: FUROSEMIDE 20MG TABLET PO SCH (09:40)
[2019-01-25] MEDS: DOCUSATE SODIUM 100MG CAPSULE PO SCH ×2 (09:40→16:52)
[2019-01-25] MEDS: HYDROCODONE/ACETAMINOPHEN 10/325MG TABLET PO PRN ×2 (09:40→17:04)
[2019-01-25] MEDS: THROAT LOZENGES-BENZOCAINE/MENTH/CETYLPYRD CL LOZENGES MM PRN (17:24)
[2019-01-25] MEDS: ATORVASTATIN CALCIUM 20MG TABLET PO SCH (21:01)
[2019-01-25] MEDS: DIPHENHYDRAMINE 50MG/ML VIAL IV PRN (21:07)
[2019-01-26] VITALS: BP 155/71
[2019-01-26] MEDS: IPRATROPIUM/ALBUTEROL 0.5-3(2.5)MG/3ML NEB NEB SCH ×4 (03:02→13:52)
[2019-01-26 04:00] VITALS: BP 105/68
[2019-01-26] MEDS: THROAT LOZENGES-BENZOCAINE/MENTH/CETYLPYRD CL LOZENGES MM PRN (04:29)
[2019-01-26] MEDS: GABAPENTIN 100MG CAPSULE PO SCH ×2 (05:57→15:14)
[2019-01-26 07:33] LABS: CHLORIDE 100 mEq/L (98-107)
[2019-01-26 07:38] LABS: BASOPHILS % 0.2 % (0.0-2.0); EOSINOPHILS % 1.9 % (0.0-5.0); HEMATOCRIT. 31.7 % (36.0-48.0); HEMOGLOBIN. 10.3 g/dL (12.0-16.0); LYMPHOCYTES % 17.2 % (20.0-50.0); MEAN CORPUSCULAR VOLUME 92.7 fL (81.0-99.0); MEAN PLATELET VOLUME 11.5 fl (7.4-10.4); MONOCYTES % 11.7 % (2.0-8.0); PLATELET 125 x1000/uL (130-400); RED BLOOD CELL COUNT 3.42 mill/uL (4.2-5.4); RED CELL DISTRIBUTION WIDTH 12.9 % (11.6-14.6)
[2019-01-26 08:00] VITALS: BP 140/71
[2019-01-26] MEDS: FUROSEMIDE 20MG TABLET PO SCH (09:15)
[2019-01-26] MEDS: DOCUSATE SODIUM 100MG CAPSULE PO SCH (09:15)
[2019-01-26] MEDS: AMLODIPINE 5MG TABLET PO SCH (09:15)
[2019-01-26] MEDS: HYDROCODONE/ACETAMINOPHEN 10/325MG TABLET PO PRN (09:27)
[2019-01-26 12:00] VITALS: BP 114/57
== END 2019-01-26 15:42 | DRG 471 ==
LOC: OR 05:20 → MICUSO 09:44 → 6EST 01-22 17:01
PROVIDERS: ADMIT Internal Medicine Nephrology; ATTEND Internal Medicine Nephrology
PROC: 0RG20J1 Fusion of 2 or more Cervical Vertebral Joints with Synthetic Substitute, Posterior Approach, Posterior Column, Open Approach (ICD-10-PCS; principal; 2019-01-20)
PROC: 01N10ZZ Release Cervical Nerve, Open Approach (ICD-10-PCS; 2019-01-20)
PROC: 00NW0ZZ Release Cervical Spinal Cord, Open Approach (ICD-10-PCS; 2019-01-20)
DX: M47.12 Other spondylosis with myelopathy, cervical region (principal); G82.50 Quadriplegia, unspecified; N17.9 Acute kidney failure, unspecified; E87.1 Hypo-osmolality and hyponatremia; N39.0 Urinary tract infection, site not specified; M48.02 Spinal stenosis, cervical region; D64.9 Anemia, unspecified; M54.5 Low back pain; E78.5 Hyperlipidemia, unspecified; G89.4 Chronic pain syndrome; M54.12 Radiculopathy, cervical region; R13.10 Dysphagia, unspecified; R73.9 Hyperglycemia, unspecified; R26.81 Unsteadiness on feet; Z82.49 Family history of ischemic heart disease and other diseases of the circulatory system
CPT/HCPCS: 36415; 72040; 72141; 74018; 76000; 80048; 80061; 81003; 83735; 84100; 84484; 86850; 86870; 86900; 88304; 88311; 92610; 93005; 94640; 95925; 95926; 95928; 95929; 97110; 97116; 97162; 97166; C1713; C1893; J0690; J1100; J1200; J2250; J2270; J2405; J2704; J2710; J3010; J3490; J7042; J7050; J7121; J7620; L0172

== ENCOUNTER → 2019-10-01 | Outpatient (CLI) | payer MEDICARE, MEDICAID ==
[~2019-10-01] MED LIST changes: +ASPI-1497 PO; +DIAZ5TAB PO; +FLUT15.844 BOTHNSTRLS; -FLUT15.88 BOTHNSTRLS; +FURO20TA4 PO; +HYDR-4001 PO; +HYDR25TA PO; -LACTATED RINGERS 1,000 ML IV SCH; +NAPR1TAB28 PO
== END | disposition home or self-care (01) ==
LOC: LAB 08:46
PROVIDERS: ATTEND Neurological Surgery
DX: Z03.818 Encounter for observation for suspected exposure to other biological agents ruled out (principal)
CPT/HCPCS: U0003-CS

== ENCOUNTER 2019-10-07 16:50 | Inpatient (IN) | payer MEDICARE, MEDICAID ==
[~2019-10-07] VITALS: Ht 165.1 cm; Wt 73.9 kg
[2019-10-07 17:30] VITALS: BP 147/53
[2019-10-07] MEDS ORDERED: BISACODYL 5MG TABLET PO PRN (17:45)
[2019-10-07] MEDS ORDERED: IPRATROPIUM/ALBUTEROL 0.5-3(2.5)MG/3ML NEB HHN PRN (17:45)
[2019-10-07] MEDS ORDERED: BENZONATATE 100MG CAPSULE PO PRN (17:45)
[2019-10-07] MEDS ORDERED: ONDANSETRON HCL 4MG TABLET PO PRN (17:45)
[2019-10-07] MEDS ORDERED: DIAZEPAM 5 MG TABLET PO PRN (17:45)
[2019-10-07] MEDS ORDERED: BISACODYL 10MG SUPP PR PRN (17:45)
[2019-10-07] MEDS ORDERED: OXYCODONE HCL/ACETAMINOPHEN 5/325MG TABLET PO PRN (17:45)
[2019-10-07 19:25] VITALS: BP 147/53
[2019-10-07 20:00] VITALS: BP 146/46
[2019-10-07] MEDS: POLYETHYLENE GLYCOL 3350 (17GM) 1 DOSE PACK PO SCH (20:08)
[2019-10-07] MEDS: HYDROCODONE/ACETAMINOPHEN 5/325MG TABLET PO PRN (20:08)
[2019-10-07] MEDS ORDERED: GABAPENTIN 100MG CAPSULE PO SCH (21:00)
[2019-10-08] MEDS: HYDROCODONE/ACETAMINOPHEN 5/325MG TABLET PO PRN ×2 (06:23→12:53)
[2019-10-08 07:31] LABS: BASOPHILS % 0.3 % (0.0-2.0); EOSINOPHILS % 1.1 % (0.0-5.0); HEMATOCRIT. 24.6 % (36.0-48.0); LYMPHOCYTES % 7.7 % (20.0-50.0); MEAN CORPUSCULAR HEMOGLOBIN 30.9 pg (28.0-32.0); MEAN CORPUSCULAR VOLUME 94.7 fL (81.0-99.0); MEAN PLATELET VOLUME 11.2 fl (7.4-10.4); MONOCYTES % 9.5 % (2.0-8.0); NEUTROPHILS % 81.4 % (40.0-76.0); PLATELET 129 x1000/uL (130-400); RED CELL DISTRIBUTION WIDTH 14.4 % (11.6-14.6)
[2019-10-08 07:43] LABS: CHLORIDE 103 mEq/L (98-107)
[2019-10-08 07:53] VITALS: BP 120/49
[2019-10-08] MEDS: DOCUSATE SODIUM 100MG CAPSULE PO SCH ×2 (08:25→16:18)
[2019-10-08] MEDS: CYCLOBENZAPRINE 10MG TABLET PO PRN (08:25)
[2019-10-08] MEDS: PANTOPRAZOLE 40MG DR TABLET PO SCH (08:25)
[2019-10-08] MEDS: FERROUS SULFATE 300MG/5ML UDC PO SCH ×3 (08:25→16:18)
[2019-10-08] MEDS: LACTULOSE 20G/30ML UDC PO SCH ×3 (14:00→21:34)
[2019-10-08] MEDS: HYDROCODONE/ACETAMINOPHEN 10/325MG TABLET PO PRN (15:13)
[2019-10-08 20:00] VITALS: BP 110/56
[2019-10-08] MEDS: POLYETHYLENE GLYCOL 3350 (17GM) 1 DOSE PACK PO SCH (21:00)
[2019-10-08] MEDS: DIPHENHYDRAMINE 25MG CAPSULE PO PRN (21:26)
[2019-10-09] MEDS: HYDROCODONE/ACETAMINOPHEN 5/325MG TABLET PO PRN (00:51)
[2019-10-09 07:50] VITALS: BP 146/62
[2019-10-09] MEDS: FERROUS SULFATE 300MG/5ML UDC PO SCH ×3 (08:29→16:48)
[2019-10-09] MEDS: PANTOPRAZOLE 40MG DR TABLET PO SCH (08:29)
[2019-10-09] MEDS: HYDROCODONE/ACETAMINOPHEN 10/325MG TABLET PO PRN ×2 (08:29→17:03)
[2019-10-09] MEDS: DOCUSATE SODIUM 100MG CAPSULE PO SCH ×2 (08:29→16:48)
[2019-10-09] MEDS ORDERED: GABAPENTIN 100MG CAPSULE PO SCH ×2 (09:00→21:00)
[2019-10-09] MEDS: GABAPENTIN 100MG CAPSULE PO SCH ×2 (09:47→21:12)
[2019-10-09] MEDS: CYCLOBENZAPRINE 10MG TABLET PO PRN (09:47)
[2019-10-09] MEDS: NA PHOS,M-B/NA PHOS,DI-BA ENEMA 118ML PR PRN (11:12)
[2019-10-09 20:00] VITALS: BP 111/40
[2019-10-09] MEDS: POLYETHYLENE GLYCOL 3350 (17GM) 1 DOSE PACK PO SCH (21:00)
[2019-10-10] MEDS: HYDROCODONE/ACETAMINOPHEN 10/325MG TABLET PO PRN ×3 (07:10→18:35)
[2019-10-10 07:25] LABS: BASOPHILS % 1.2 % (0.0-2.0); EOSINOPHILS % 2.2 % (0.0-5.0); HEMATOCRIT. 22.6 % (36.0-48.0); HEMOGLOBIN. 7.5 g/dL (12.0-16.0); LYMPHOCYTES % 15.9 % (20.0-50.0); MEAN CORPUSCULAR HEMOGLOBIN 30.9 pg (28.0-32.0); MEAN CORPUSCULAR VOLUME 93.7 fL (81.0-99.0); MEAN PLATELET VOLUME 12.1 fl (7.4-10.4); MONOCYTES % 12.1 % (2.0-8.0); NEUTROPHILS % 68.6 % (40.0-76.0); PLATELET 123 x1000/uL (130-400); RED BLOOD CELL COUNT 2.41 mill/uL (4.2-5.4); RED CELL DISTRIBUTION WIDTH 14.3 % (11.6-14.6)
[2019-10-10 07:35] LABS: PHOSPHORUS 3.4 mg/dL (2.5-4.9)
[2019-10-10 07:49] LABS: FOLIC ACID (FOLATE) SERUM >20 ng/mL ng/mL (>5.38)
[2019-10-10 08:12] VITALS: BP 122/71
[2019-10-10 08:23] LABS: VITAMIN B12 SERUM > 2000.0 pg/mL (211-911)
[2019-10-10] MEDS: FERROUS SULFATE 300MG/5ML UDC PO SCH ×3 (09:09→17:26)
[2019-10-10] MEDS: PANTOPRAZOLE 40MG DR TABLET PO SCH (09:09)
[2019-10-10] MEDS: GABAPENTIN 100MG CAPSULE PO SCH ×3 (09:10→22:39)
[2019-10-10] MEDS: DOCUSATE SODIUM 100MG CAPSULE PO SCH ×2 (09:10→17:27)
[2019-10-10 14:14] LABS: PLATELET ESTIMATE SLIGHTLY DECREASED
[2019-10-10] MEDS: CYCLOBENZAPRINE 10MG TABLET PO PRN (17:27)
[2019-10-10 20:00] VITALS: BP 101/49
[2019-10-10] MEDS: DIPHENHYDRAMINE 25MG CAPSULE PO PRN (20:36)
[2019-10-10] MEDS: POLYETHYLENE GLYCOL 3350 (17GM) 1 DOSE PACK PO SCH (20:38)
[2019-10-11] MEDS: HYDROCODONE/ACETAMINOPHEN 10/325MG TABLET PO PRN (04:54)
[2019-10-11] MEDS: GABAPENTIN 100MG CAPSULE PO SCH ×3 (05:22→23:06)
[2019-10-11 08:00] VITALS: BP 109/52
[2019-10-11] MEDS: DOCUSATE SODIUM 100MG CAPSULE PO SCH ×2 (08:48→17:00)
[2019-10-11] MEDS: FERROUS SULFATE 300MG/5ML UDC PO SCH ×3 (08:49→16:55)
[2019-10-11] MEDS: PANTOPRAZOLE 40MG DR TABLET PO SCH (08:53)
[2019-10-11] MEDS: CYCLOBENZAPRINE 10MG TABLET PO PRN (08:53)
[2019-10-11] MEDS: NA PHOS,M-B/NA PHOS,DI-BA ENEMA 118ML PR PRN (11:51)
[2019-10-11 19:53] LABS: FERRITIN 106 ng/mL (10-291)
[2019-10-11 20:00] VITALS: BP 117/59
[2019-10-11] MEDS ORDERED: EPOETIN ALFA 4000UNITS/ML VIAL SUBCUT SCH (21:00)
[2019-10-11] MEDS: POLYETHYLENE GLYCOL 3350 (17GM) 1 DOSE PACK PO SCH (21:00)
[2019-10-11] MEDS: DIPHENHYDRAMINE 25MG CAPSULE PO PRN (23:19)
[2019-10-11] MEDS: HYDROCODONE/ACETAMINOPHEN 5/325MG TABLET PO PRN (23:20)
[2019-10-12] MEDS: GABAPENTIN 100MG CAPSULE PO SCH ×3 (06:13→21:33)
[2019-10-12] MEDS: HYDROCODONE/ACETAMINOPHEN 10/325MG TABLET PO PRN (07:58)
[2019-10-12 08:00] VITALS: BP 110/43
[2019-10-12] MEDS: FERROUS SULFATE 300MG/5ML UDC PO SCH ×3 (08:00→16:44)
[2019-10-12] MEDS: DOCUSATE SODIUM 100MG CAPSULE PO SCH ×2 (08:00→16:44)
[2019-10-12] MEDS: PANTOPRAZOLE 40MG DR TABLET PO SCH (08:00)
[2019-10-12] MEDS: NA PHOS,M-B/NA PHOS,DI-BA ENEMA 118ML PR PRN (11:35)
[2019-10-12] MEDS ORDERED: BISACODYL 10MG SUPP PR PRN (15:30)
[2019-10-12 20:00] VITALS: BP 126/45
[2019-10-12] MEDS: POLYETHYLENE GLYCOL 3350 (17GM) 1 DOSE PACK PO SCH (21:00)
[2019-10-12] MEDS: DIPHENHYDRAMINE 25MG CAPSULE PO PRN (21:33)
[2019-10-13] MEDS: CYCLOBENZAPRINE 10MG TABLET PO PRN (02:50)
[2019-10-13 06:25] LABS: CHLORIDE 104 mEq/L (98-107)
[2019-10-13] MEDS: GABAPENTIN 100MG CAPSULE PO SCH ×3 (06:27→21:36)
[2019-10-13 07:18] LABS: HEMATOCRIT. 21.8 % (36.0-48.0); HEMOGLOBIN. 7.1 g/dL (12.0-16.0); MEAN CORPUSCULAR HEMOGLOBIN 30.4 pg (28.0-32.0); MEAN CORPUSCULAR VOLUME 92.9 fL (81.0-99.0); MEAN PLATELET VOLUME 10.9 fl (7.4-10.4); PLATELET 207 x1000/uL (130-400); RED BLOOD CELL COUNT 2.35 mill/uL (4.2-5.4); RED CELL DISTRIBUTION WIDTH 14.8 % (11.6-14.6)
[2019-10-13 07:30] VITALS: BP 119/63
[2019-10-13] MEDS: HYDROCODONE/ACETAMINOPHEN 10/325MG TABLET PO PRN ×2 (07:35→18:14)
[2019-10-13] MEDS: PANTOPRAZOLE 40MG DR TABLET PO SCH (08:41)
[2019-10-13] MEDS: DOCUSATE SODIUM 100MG CAPSULE PO SCH ×2 (08:56→16:42)
[2019-10-13] MEDS: FERROUS SULFATE 300MG/5ML UDC PO SCH ×3 (10:19→16:43)
[2019-10-13 12:13] LABS: NUCLEATED RED BLOOD CELLS 1 /100 WBC; PLATELET ESTIMATE NORMAL
[2019-10-13] MEDS: MAGNESIUM/ALUMINUM HYDROXIDE/SIMETHICONE 30ML UDC PO PRN (14:46)
[2019-10-13 17:56] VITALS: BP 117/48
[2019-10-13] MEDS: POLYETHYLENE GLYCOL 3350 (17GM) 1 DOSE PACK PO SCH (21:00)
[2019-10-13] MEDS: DIPHENHYDRAMINE 25MG CAPSULE PO PRN (21:41)
[2019-10-14] MEDS: GABAPENTIN 100MG CAPSULE PO SCH ×3 (06:18→21:41)
[2019-10-14] MEDS: HYDROCODONE/ACETAMINOPHEN 10/325MG TABLET PO PRN (06:19)
[2019-10-14 07:09] LABS: 25-HYDROXY VITAMIN D3 51 ng/mL (.)
[2019-10-14 07:30] VITALS: BP 137/53
[2019-10-14] MEDS: DOCUSATE SODIUM 100MG CAPSULE PO SCH ×2 (08:36→16:40)
[2019-10-14] MEDS: FERROUS SULFATE 300MG/5ML UDC PO SCH ×3 (08:36→16:35)
[2019-10-14] MEDS: PANTOPRAZOLE 40MG DR TABLET PO SCH (08:36)
[2019-10-14] MEDS: MAGNESIUM/ALUMINUM HYDROXIDE/SIMETHICONE 30ML UDC PO PRN ×2 (10:10→16:40)
[2019-10-14] MEDS: DIAZEPAM 5 MG TABLET PO PRN (12:32)
[2019-10-14] MEDS: CYCLOBENZAPRINE 10MG TABLET PO PRN (15:44)
[2019-10-14 20:00] VITALS: BP 126/56
[2019-10-14] MEDS: POLYETHYLENE GLYCOL 3350 (17GM) 1 DOSE PACK PO SCH (21:00)
[2019-10-15] MEDS: CYCLOBENZAPRINE 10MG TABLET PO PRN (04:10)
[2019-10-15] MEDS: GABAPENTIN 100MG CAPSULE PO SCH ×3 (05:23→20:44)
[2019-10-15] MEDS: HYDROCODONE/ACETAMINOPHEN 10/325MG TABLET PO PRN ×2 (06:40→23:18)
[2019-10-15 08:00] VITALS: BP 125/59
[2019-10-15] MEDS: FERROUS SULFATE 300MG/5ML UDC PO SCH ×3 (08:44→16:14)
[2019-10-15] MEDS: PANTOPRAZOLE 40MG DR TABLET PO SCH (08:44)
[2019-10-15] MEDS: DOCUSATE SODIUM 100MG CAPSULE PO SCH ×2 (08:45→16:14)
[2019-10-15 08:53] LABS: BASOPHILS % 0.5 % (0.0-2.0); EOSINOPHILS % 1.5 % (0.0-5.0); HEMATOCRIT. 22.2 % (36.0-48.0); HEMOGLOBIN. 7.2 g/dL (12.0-16.0); LYMPHOCYTES % 14.1 % (20.0-50.0); MEAN CORPUSCULAR HEMOGLOBIN 30.1 pg (28.0-32.0); MEAN CORPUSCULAR VOLUME 92.2 fL (81.0-99.0); MONOCYTES % 10.9 % (2.0-8.0); PLATELET 235 x1000/uL (130-400); RED BLOOD CELL COUNT 2.41 mill/uL (4.2-5.4); RED CELL DISTRIBUTION WIDTH 14.8 % (11.6-14.6)
[2019-10-15] MEDS: NA PHOS,M-B/NA PHOS,DI-BA ENEMA 118ML PR PRN (12:50)
[2019-10-15 13:06] LABS: A/G RATIO 0.7 (0.7-1.7); ALBUMIN 2.5 g/dL (2.9-4.4); ALPHA-1-GLOBULIN 0.4 g/dL (0.0-0.4); ALPHA-2-GLOBULIN 1.4 g/dL (0.4-1.0); BETA GLOBULIN 1.1 g/dL (0.7-1.3); GAMMA GLOBULINS 0.7 g/dL (0.4-1.8); GLOBULIN TOTAL 3.5 g/dL (2.2-3.9); M-SPIKE Not Observed g/dL (Not Observed)
[2019-10-15] MEDS: DIAZEPAM 5 MG TABLET PO PRN (13:06)
[2019-10-15 20:00] VITALS: BP 111/55
[2019-10-15] MEDS: POLYETHYLENE GLYCOL 3350 (17GM) 1 DOSE PACK PO SCH (20:42)
[2019-10-16] MEDS: DIPHENHYDRAMINE 25MG CAPSULE PO PRN (00:37)
[2019-10-16] MEDS: GABAPENTIN 100MG CAPSULE PO SCH (06:01)
[2019-10-16 07:35] VITALS: BP 113/62
[2019-10-16 07:40] VITALS: BP 113/62
[2019-10-16] MEDS: FERROUS SULFATE 300MG/5ML UDC PO SCH (08:05)
[2019-10-16] MEDS: PANTOPRAZOLE 40MG DR TABLET PO SCH (08:05)
[2019-10-16] MEDS: DOCUSATE SODIUM 100MG CAPSULE PO SCH (08:06)
[2019-10-16 08:11] VITALS: BP 113/62
[2019-10-16] MEDS: HYDROCODONE/ACETAMINOPHEN 10/325MG TABLET PO PRN (08:11)
[2019-10-16] MEDS: DIAZEPAM 5 MG TABLET PO PRN (08:11)
== END 2019-10-16 10:00 | disposition home health service (06) | DRG 552 ==
PROVIDERS: ADMIT Physical Medicine & Rehabilitation Spinal Cord Injury Medicine; ATTEND Internal Medicine Nephrology
DX: M48.04 Spinal stenosis, thoracic region (principal); N17.9 Acute kidney failure, unspecified; E46 Unspecified protein-calorie malnutrition; G95.20 Unspecified cord compression; G82.20 Paraplegia, unspecified; M47.14 Other spondylosis with myelopathy, thoracic region; R26.9 Unspecified abnormalities of gait and mobility; R53.81 Other malaise; G89.4 Chronic pain syndrome; D69.6 Thrombocytopenia, unspecified; R73.9 Hyperglycemia, unspecified; I10 Essential (primary) hypertension; Z68.27 Body mass index [BMI] 27.0-27.9, adult; R26.89 Other abnormalities of gait and mobility; D50.9 Iron deficiency anemia, unspecified
CPT/HCPCS: 36415; 80048; 80053; 82270; 82306; 82607; 82728; 82746; 83540; 83550; 83735; 84100; 84134; 84155; 84165; 84443; 85025; 93970; 97110; 97116; 97162; 97166; 97530; 97535; J0885; Q0163